=== PATIENT | female | born 1995 | race Caucasian/White ===

== ENCOUNTER 2021-05-22 12:31 | Emergency (ER) | payer MEDICAID, OTHER ==
[~2021-05-22] VITALS: Ht 167.6 cm; Wt 59.9 kg
[~2021-05-22 12:31] MED LIST: CEPH-570 PO; SULF1TAB48 PO
--- NOTE | 2021-05-22 12:35 | NUR ---
PT C/O WHEEZING AND COUGHING FOR A WEEK AND WORSENED TODAY. PT VITAL WERE STABLE. SPO2 98% ON ROOM AIR. PT CONNECTED TO MONITOR.
[2021-05-22] MEDS ORDERED: PRED50TA PO (12:48)
[2021-05-22] MEDS ORDERED: AZIT250T PO (12:48)
[2021-05-22] MEDS ORDERED: ALBU8.5H8 INH (12:48)
[2021-05-22] MEDS ORDERED: ALBUTEROL FS 2.5 MG/3 ML VIAL.NEB ONE (12:49)
--- NOTE | 2021-05-22 12:50 | NUR ---
RT IS AT PT BEDSIDE.
[2021-05-22] MEDS ORDERED: ALBUTEROL FS 2.5 MG/3 ML VIAL.NEB NEB ONE (13:00)
[2021-05-22] MEDS ORDERED: predniSONE 20 MG TABLET PO ONE (13:00)
[2021-05-22] MEDS ORDERED: predniSONE 20 MG TABLET ONE (13:33)
--- NOTE | 2021-05-22 14:08 | NUR ---
VITAL SIGNS WITHIN NORMAL LIMITS. PT WAS GIVEN PRESCRIPTION AND DISCHARGE INSTRUCTIONS.
[2021-05-22 14:11] VITALS: BP 139/88
== END 2021-05-22 14:08 | disposition home or self-care (01) ==
LOC: ER 12:33
DX: J45.901 Unspecified asthma with (acute) exacerbation (principal); F17.200 Nicotine dependence, unspecified, uncomplicated; Z79.899 Other long term (current) drug therapy
CPT/HCPCS: 94640; 99283; 99406; J7512